=== PATIENT | male | born 1955 | race Caucasian/White ===

== ENCOUNTER 2016-08-04 05:41 | Day surgery (SDC) | payer OTHER ==
[~2016-08-04] VITALS: Ht 182.9 cm; Wt 97.5 kg
[~2016-08-04 05:41] MED LIST: ASPIRIN EC81 M1 PO; COREG6.25 MG PO; FUROSEMIDE40 MG PO; HYDROCODONE-APA1 TAB PO; LISINOPRIL2.5 MG PO; ULORIC40 MG PO
[2016-08-04 06:33] LABS: HEMATOCRIT 42.5 % (42.0-54.0); HEMOGLOBIN 14.3 g/dL (13.5-17.5); MCH 31.6 pg (26.0-34.0); MCHC 33.6 g/dL (31.0-37.0); MCV 93.8 fL (80.0-100.0); MEAN PLATELET VOLUME 10.2 fL (7.4-10.4); RBC 4.53 10x6/uL (4.20-6.10); RDW 13.6 % (11.5-14.5); WBC 6.4 10x3/uL (4.8-10.8)
[2016-08-04 06:47] LABS: ANION GAP 12.4 mmol/L (8-16); CALCIUM 8.8 mg/dL (8.5-10.1); CARBON DIOXIDE 28.6 mmol/L (21.0-32.0); CREATININE - SERUM 1.9 mg/dL (0.6-1.3)
[2016-08-04 06:55] LABS: APTT 27.6 SECONDS (22.8-39.4); PROTIME 13.1 SECONDS (11.6-15.0)
[2016-08-04] MEDS ORDERED: MULTIPLE VITAMI1 TA1 PO (09:02)
[2016-08-04] MEDS ORDERED: HYDROCODONE-APA1 TAB PO (09:02)
[2016-08-04 09:15] VITALS: BP 113/73; Ht 182.9 cm; Wt 97.5 kg
--- NOTE | 2016-08-04 14:32 | NUR ---
1345 IV DC WITH CATHER TIP INTACT
--- NOTE | 2016-08-05 11:32 | HP ---
PATIENT: JUDE HA MEDICAL RECORD: [id number] ACCOUNT: [id number] LOCATION:D.OPS : 56 ADMISSION DATE: 08/04/16 HISTORY AND PHYSICAL EXAMINATION NamePERSJUDE LAGUNA (60yo, M) ID# [id number]. Date/Time07/19/2016 11:11WWFIL12 [facility] Dept[facility] ClinicProviderEDSAMANTA DICKENS MDInsuranceMed Primary: AILYN BARRETO - [facility] - BALANCED CARE 7 (PPO) Insurance # : [id number] Policy/Group # : AMB [employer] 2 PP Referring Provider Name : VALERIA MCKEON Employer Name : UNKNOWN Prescription: [employer] - Member is eligible. 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 [facility] [address], , Vitals BP:122/80 sitting R arm 07/19/2016 10:52 amBP Cuff Size:adult 07/19/2016 10:52 amHR:68,irreg 07/19/2016 10:53 amHt:6 ft 07/19/2016 10:53 amWt:215 lbs 07/19/2016 10:53 amBMI:29.2 07/19/2016 10:53 amAllergies Reviewed Allergies NKDAMedications Reviewed Medications Aspir-81 hcaavvdc82/09/16 enteredCindy Browncarvedilol 6.25 mg /19/16 [facility] Administrationfurosemide 40 mg pblywm49/22/16 filled[place] Medicaid AdministrationHYDROcodone 10 mg-acetaminophen 325 mg jqlybi02/12/16 filledC[place]ell[place] Medicaid Administrationlisinopril 2.5 mg sokqfr30/02/16 filledMag[place] Medicaid AdministrationUloric 80 mg tablet Take 1 tablet(s) every day by oral route.07/07/16 Bam BrownXanax 0.25 mg tablet Take 1 tablet(s) as needed by oral route.07/07/16 Bam KennedyProblems Reviewed Problems Cardiomyopathy Family History Reviewed Family History Mother- Essential hypertensionSocial History Reviewed Social History Cardiology Family history of heart disease?: Y Smoking Status: Never smoker Non-smoker High Cholesterol: N High blood pressure: Y Overweight: Y Obese: N Diabetes: N HISTORY AND PHYSICAL [id number] JUDE HA General stress level: Low Alcohol intake: Occasional (Notes: 2-3 beers a week) 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 HPI Dysrhythmia Reported by patient. Frequency: none Limitations: none Alleviating Factors: controlled on current medication sudden syndrome ROS Patient reports muscle aches, arthralgias/joint pain, and swelling in the extremities but reports no muscle weakness and no back pain; gout. He reports no fever, no night sweats, no significant weight gain, no significant weight loss, and no exercise intolerance. He reports no dry eyes, no irritation, and no vision change. He reports no difficulty hearing and no ear pain. He reports no frequ e nt nosebleeds and no nose/sinus problems. He reports no sore throat, no bleeding gums, no snoring, no dry mouth, no mouth ulcers, no oral abnormalities, and no teeth problems. He reports no jugular vein distension and no swollen glands. He reports no ches t pain, no arm pain on exertion, no shortness of breath when walking, no shortness of breath when lying down, no palpitations, and no known heart murmur. He reports no chest pressure, no lightheadedness, no chest pain, no dyspnea on exertion, no leg edema, no syncope, no orthopnea, no palpitations, and no PND. He reports no cough, no wheezing, no shortness of breath, and no coughing up blood. He reports no abdominal pain, no vomiting, normal appetite, no diarrhea, not vomiting blood, no nausea, and no const i pation. He reports no incontinence, no difficulty urinating, no hematuria, and no increased frequency. He reports no abnormal mole, no jaundice, and no rashes. He reports no loss of consciousness, no weakness, no numbness, no seizures, no dizziness, and n o headaches. He reports no depression, no sleep disturbances, feeling safe in relationship, and no alcohol abuse. He reports no fatigue. He reports no swollen glands and no bruising. He reports no runny nose, no sinus pressure, no itching, no hives, and no frequent sneezing. ROS as noted in the HPI Physical Exam Patient is a 60-year-old male. Constitutional: General Appearance well nourished and developed and healthy-appearing. Level of Distress NAD. Ambulation ambulating normally. Cardiovascular: Apical Impulse not displaced or no thrill. Heart Auscultation normal s1 and s2; no murmurs, rubs, or gallops; and RRR. Arterial Pulses no abdominal aorta HISTORY AND PHYSICAL [id number] PERSER,JUDE R bruits, femoral bruits, or popliteal bruits and 2+ bilateral, carotid 2+ bilateral, femoral 2+ bilateral, po pliteal 2+ bilateral, and dorsalis pedis 2+ bilateral. Edema no edema or varicosities; AICD left subclavian area Normal. Lungs: Repiratory Effort no dyspnea. Percussion no hyperresonance or dullness or flatness. Auscultation no wheezing, rhonchi, or rales / crackles and breathing sounds normal, good air movement, and CTA except as noted. Abdomen: Bowl Sounds normal. Inspection and Palpation no tenderness, guarding, masses, or rebound tenderness and soft and non-distended. Liver non-tender and no hepatomegaly. Spleen non-tender and no splenomegaly. Hernia none palpable. Musculoskeletal System: Gait And Stance normal gait and stance. Digits and Nails normal nails and no cyanosis. Neurologic: Cranial Nerves grossly intact. Reflexes DTRs 2+ bilaterally throughout. Sensation grossly intact. Lymph Nodes: Lymph Nodes no cervical LAD, supraclavicular LAD, axillary LAD, or inguinal LAD. Eyes: Lids and Conjunctivae no discharge or pallor and non-injected. Pupils PERRLA. Cornea grossly intact. EOM EOMI. Lens clear. Sclerae non-icteric. Neck: Neck no masses, enlarged lymph nodes, or carotid bruits and supple and trachea midline. Thyroid no enlargement or nodules and non-tender. Skin: Inspection and Palpation no rash, lesions, ulcers, jaundice, or abnormal nevi. Assessment / Plan 1. Cardiomyopathy I42.9: Cardiomyopathy, unspecified 2. History of cardiac arrest - sudden syndrome Last shock 2014 Z86.74: Personal history of sudden cardiac arrest Discussion Notes patient needs AICD pulse generator exchange Battery end-of-life He is using the pacing system as well as last cardioversion in 2014 Scheduled for AICD generator exchange He will need someone to drive him home Return to Office None recorded. Encounter Sign-Off Encounter signed-off by Zev Dickens MD, 07/19/2016. 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
--- NOTE | 2016-08-05 11:32 | OP ---
PATIENT NAME: JUDE HA MEDICAL RECORD: [id number] :57 LOCATION:[facility] ADMISSION DATE: SURGEON: TONYA GUILLAUME MD DATE OF OPERATION: 08/04/2016 SURGEON: Tonya Guillaume MD ANESTHESIA: General, Dr. Bains. OPERATION PERFORMED: AICD pulse generator exchange and pulse generator pocket revision. PREOPERATIVE DIAGNOSIS: Cardiomyopathy. POSTOPERATIVE DIAGNOSIS: Cardiomyopathy. INDICATION FOR OPERATION: AICD, end of life. FINDINGS OF THE OPERATION: The newly implanted pulse generator is Medtronic ____, model number [id number], serial number [id number]. The leads were unchanged and were of good chronic lead thresholds. Please see the Medtronic worksheet for the specific numbers. ESTIMATED BLOOD LOSS: Less than 5 cc. DESCRIPTION OF PROCEDURE: After informed consent, adequate preoperative medication evaluation, the patient was brought to the operating room, placed on the operating table in the supine position. After induction of general anesthesia and application of appropriate monitoring devices, the left chest was prepped and draped in a sterile field, utilizing Betadine scrub, alcohol, and Betadine solution. A Betadine-impregnated drape was also used, 1% lidocaine was infiltrated in the left subclavicular space as well as in the pulse generator pocket. An incision was made, carried down to the pocket. The pocket was opened, the device was explanted and the leads were mobilized proximally. The device was removed and the patient paced through his RV lead mobilization of the leads was performed as well as modifying the pocket inferiorly and medially. Hemostasis was assured. The leads were then connected to the new pulse generator and the device was tested. The settings were normal as were the thresholds. The pocket was irrigated. Instrument count and sponge count were correct times 2. The pocket was closed in layers utilizing 3-0 Vicryl on deep subcutaneous tissue, 3-0 Vicryl on superficial subcutaneous tissue, and skin approximated with subcuticular Vicryl. Sterile dressings were applied. The patient tolerated the procedure well and was transferred to postanesthesia recovery in satisfactory condition. TRANSINT:[id number] Voice Confirmation ID: [id number] DOCUMENT ID: [id number] OPERATIVE REPORT [id number] JUDE HA TONYA GUILLAUME MD at 1138 CC: [id number] DICTATION DATE: 08/04/16 1204 POKER PROP PLAYER: 08/04/16 1406 [facility] 08/04/16 [place] [id number] [place] [id number]
== END 2016-08-04 14:00 | disposition home or self-care (01) ==
LOC: D.OPS 05:41
PROVIDERS: Internal Medicine Cardiovascular Disease
DX: Z45.02 Encounter for adjustment and management of automatic implantable cardiac defibrillator (principal); I10 Essential (primary) hypertension; I42.9 Cardiomyopathy, unspecified; E66.3 Overweight; Z68.29 Body mass index [BMI] 29.0-29.9, adult

== ENCOUNTER 2018-02-28 10:54 | Outpatient (CLI) | payer SELFPAY ==
[~2018-02-28] VITALS: Ht 182.9 cm; Wt 91.8 kg
--- NOTE | ~2018-02-28 | OP ---
PATIENT NAME: JUDE HA MEDICAL RECORD: [id number] :57 LOCATION:D.CAT ADMISSION DATE: SURGEON: CASSIUS MEDINA MD DATE OF OPERATION: 02/28/2018 PROCEDURE: Left and right heart catheterization, right femoral vein and artery approach respectively. CATHETERS: A 5-Tunisian sheath, 5/4 left and right Manjinder, 6-Tunisian sheath on the venous side, [place]-Mansi catheter. The procedure was well tolerated. The patient was returned to padilla. Sheath removed. ExoSeal device placed on the arterial side and manual pressure on the venous side. Right heart had [place]-Mansi placement under fluoroscopic guidance. PRESSURES: As follow; 1. Pulmonary capillary wedge pressure is 22 mmHg. 2. PA pressure is 44/19. 3. RV pressure 39/6. 4. RA pressure 6. CORONARY ANATOMY: LEFT MAIN: Left main is free of disease. LAD: Free of disease in the diagonal system. CIRCUMFLEX: Free of disease in the marginal system. RIGHT CORONARY ARTERY: Dominant artery, gives rise to PDA, free of disease. LV function shows severe global hypokinesis with EF estimated at 15%. IMPRESSION: Severe nonischemic cardiomyopathy. Consider status post 3-lead ICD. TRANSINT:[id number] Voice Confirmation ID: [id number] DOCUMENT ID: [id number] CASSIUS MEDINA MD at 1116 CC: [id number] DICTATION DATE: 02/28/18 1443 BALLASTER: 02/28/18 1515 DEP CLI 02/28/[address] [id number]
--- NOTE | ~2018-02-28 | HEMODYNAMI ---
PATIENT:JUDE HA MEDICAL RECORD: [id number] : 57 LOCATION:[facility] ADMISSION DATE: 02/28/18 Generatedon:02/28/201814:33 Patient name: JUDE HA Patient #: [id number] SSN: [id number] 2 : 1955 Date of study: 02/28/2018 Page: Of Hemodynamic Procedure Report Patient Data Patient Demographics Procedure consent was obtained First Name: JUDE Gender: Male Last Name: LELAND : 1955 Middle Initial: R Age: 62 year(s) Patient #: [id number] Race: Unknown SSN: [id number] Additional ID: [id number] Contact details Address: [address] State: [place] City: [place] Zip code: [address] Past Medical History Allergies: No known allergies Admission Admission Data Admission Date: 02/28/2018 Admission Time: 10:54 Height (in.): 72 BSA: 2.13 (m2) Height (cm.): 182.88 BMI: 27.12 (kg/m2) Weight (lbs.): 200 Weight (kg.): 90.72 Lab Results Lab Result Date: 02/28/2018 Lab Result Time: 0:00 Biochemistry Name Units Result Min Max BUN mg/dl 34 --(----)-* 7 18 Creatinine mg/dl 2 --(----)-* 0.6 1.3 CBC Name Units Result Min Max Hemoglobin g/dl 15.3 --(-*--)-- 13.5 17.5 Procedure Procedure Types Cath Procedure Diagnostic Procedure Right Heart RHC and LHC w/o Cors Sedation Charges Moderate Sedation up to 30 minutes Procedure Description Procedure Date Procedure Date: 02/28/2018 Procedure Start Time: 14:07 Procedure End Time: 14:31 Procedure Staff Name Function Nida Rosario RN Nurse Evaristo Shaw MD Performing Physician Stormy Allen RT Monitor Christy Salmeron RT Scrub Araceli Counts RT Monitor Procedure Data Cath Procedure Fluoroscopy Diagnostic fluoroscopy Total fluoroscopy Time: 7.7 time: 7.7 min min Diagnostic fluoroscopy Total fluoroscopy dose: 735 dose: 735 mGy mGy Contrast Material Contrast Material Type Amount (ml) Isovue 300 53 Entry Location Entry Primary Successful Side Size Upsize Upsize Entry Closure [place] ccessful Closure Location (Fr) 1 (Fr) 2 (Fr) Remarks Device Remarks Femoral Right 5 Fr Exoseal artery Femoral Right 7 Fr Manual vein Short Compression Estimated blood loss: 5 ml Diagnostic catheters Device Type Used For End Catheter Placement SWAN 7Fr Thermodilution Right heart cath cather (131F7P) MULTIPACK JL 4.0 5Fr Left Coronary catheter Angiography MULTIPACK 3DRC 5Fr Right Coronary catheter Angiography MULTIPACK Pigtail 5 Fr LV Angiography catheter Procedure Complications No complications Procedure Medications Medication Administration Route Dosage Oxygen etCO2 Nasal cannula 2 l/min Heparin Flush Bag added to field 2 bags (1000units/500ml NS) 0.9% NaCl I.V. 100 ml/hr Fentanyl I.V. 50 mcg Versed I.V. 1 mg Fentanyl I.V. 50 mcg Versed I.V. 1 mg Hemodynamics Rest BSA: 2.13 (m2) HGB: 15.3 (g/dl) O2 Consumption: Estimated: 243.36 (ml/min) O2 Co nsumption indexed: Estimated:114.25 (ml/min/m) Heart Rate: 62 (bpm) Pressure Samples Time Site Value (mmHg) Purpose Heart Use Rate(bpm) 14:19 PCW 23/26(22) Snapshot 60 14:19 PA 44/19(28) Snapshot 60 14:20 RV 39/1,6 Snapshot 60 14:20 RA 8/7(6) Snapshot 60 14:25 LV 85/11,15 EDP 60 14:26 LV 84/13,15 Pullback 60 14:26 AO 88/58(69) Pullback 60 Gradients Valve Time Site 1 Site 2 Mean SEP/DFP Peak To Heart Use (mmHg) (sec/min) Peak Rate (mmHg) (bpm) Aortic 14:26 LV AO 0 9 0 60 84/13,15 88/58(69) Calculations Valve P-P Mean Valve Index Valve Source Name Gradient Area Flow (cm2) Aortic 0 0 0 0 Snapshots Pre Cath Intra NCS Post Cath Vital Signs Time Heart Resp SPO2 etCO2 NIBP Rhythm Pain Sedation Rate (ipm) (%) (mmHg) (mmHg) Status Level (bpm) 13:47:45 71 16 96 0 110/71(83) NSR 0 (11) 10(A) , No pain 13:50:00 72 17 96 0 112/71(88) NSR 0 (11) 10(A) , No pain 13:54:02 59 16 97 0 107/77(87) NSR 0 (11) 10(A) , No pain 13:58:06 59 16 94 23.2 104/67(80) NSR 0 (11) 10(A) , No pain 14:02:09 59 16 94 14.9 100/64(77) NSR 0 (11) 10(A) , No pain 14:06:13 60 16 97 32.9 97/59(84) NSR 0 (11) 10(A) , No pain 14:10:16 59 17 97 35.2 91/58(81) NSR 0 (11) 9(A) , No pain 14:14:18 60 16 95 33.7 89/58(69) NSR 0 (11) 9(A) , No pain 14:18:20 60 16 94 14.9 92/53(70) NSR 0 (11) 9(A) , No pain 14:22:22 59 16 96 35.2 95/56(64) NSR 0 (11) 9(A) , No pain 14:26:23 60 16 97 33.7 95/61(69) NSR 0 (11) 9(A) , No pain 14:29:11 63 17 98 29.9 100/64(72) NSR 0 (11) 9(A) , No pain Medications Time Medication Route Dose Verified Delivered Reason Notes Effe ctiveness by by 13:49:34 Oxygen etCO2 2 Evaristo Hagen Per Nasal l/min [facility] Den Major RN physician cannula 13:49:41 Heparin Flush added 2 Evaristo Hagen used for Bag to bags [facility] Den Major RN procedure (1000units/500ml field NS) 13:49:49 0.9% NaCl I.V. 100 Evaristo Hagen Per ml/hr [facility] Den Major RN physician 13:56:09 Fentanyl I.V. 50 Evaristo [place] [facility] [place] [facility] [place] sedation 13:56:15 Versed I.V. 1 mg Evaristo Hagen for [facility] RN sedation 14:07:19 Fentanyl I.V. 50 Evaristo Hagen [place] [facility] [place] [facility] RN sedation 14:07:22 Versed I.V. 1 mg Evaristo Hagen for [facility] RN sedation Procedure Log Time Note 13:28:52 Patient Height : 72 inches 13:29:20 Patient Weight : 200 lbs 13:30:27 Diagnostic Cath status Elective 13:30:29 Nida Rosario RN sent for patient. Start room use. 13:30:30 Time tracking: Regular hours (M-F 7:00 - 5:00) 13:30:35 Plan of Care:Hemodynamics will remain stable., Cardiac rhythm will remain stable., Comfort level will be maintained., Respiratory function will remain adequate., Patient/ family verbilizes understanding of procedure., Procedure tolerated without complication., Recovers from procedure without complications.. 13:31:12 H&P Date Dictated: 02/25/2018 Within 30 days and on chart., H&P Addendum completed by physician on day of procedure. (MUST COMPLETE FOR ALL OUTPATIENTS). 13:42:52 Patient allergic to No known allergies 13:43:22 Lab Result : Hemoglobin 15.3 g/dl 13:43:22 Lab Result : Creatinine 2 mg/dl 13:43:22 Lab Result : BUN 34 mg/dl 13:43:44 Patient received from Pre/Post Procedure Room to CCL 2 Alert and oriented. Tansferred to table in Supine position. 13:43:48 Warm blankets applied, and nolberto hugger turned on for patient comfort. 13:43:53 Correct patient and procedure confirmed by team. 13:43:59 Signed procedure consent form obtained from patient. 13:44:00 ECG and BP/O2 sat monitors applied to patient. 13:44:04 Pre-procedure instructions explained to patient. 13:44:08 Pre-op teaching completed and patient verbalized understanding. 13:44:09 Family in patients room. 13:44:11 Patient NPO since Midnight. 13:44:13 Is the patient allergic to Iodine/contrast media? No. 13:44:15 Is patient on blood thinner?No 13:44:20 Patient diabetic? No. 13:44:24 Previous problem with sedation/anesthesia? No \\ 13:44:26 Snore? Yes 13:44:27 Sleep apnea? No 13:44:28 Opens mouth fully? Yes 13:44:28 Deviated septum? No 13:44:29 Sticks out tongue? Yes 13:44:31 Airway obstruction? No ? 13:44:36 Dentures? Yes IN 13:49:08 Vital chart was started 13:49:22 Baseline sample Acquired. 13:49:28 Rhythm: paced 13:49:30 Full Disclosure recording started 13:49:34 Oxygen 2 l/min etCO2 Nasal cannula was administered by Hieu Major RN; Per physician; 13:49:36 Pre procedure: right dorsailis pedis pulse 2+ Normal; easily identifiable; not easily obliterated 13:49:41 Heparin Flush Bag (1000units/500ml NS) 2 bags added to field was administered by Hieu Major RN; used for procedure; 13:49:43 Patient pain scale 0/10 ?. 13:49:49 0.9% NaCl 100 ml/hr I.V. was administered by Hieu Major RN; Per physician; 13:49:51 IV patent on arrival in left forearm with 0.9% NaCl at O. 13:49:53 Lab results completed and on chart. 13:49:58 Right groin area was prepped with chlora-prep and draped in sterile fashion 13:49:59 Sharps counted by scrub and verified by R.N. 13:49:59 Alarms reviewed by R. N. 13:50:03 Use device set Femoral Dx 13:50:04 ACIST Syringe (70370) opened to sterile field. 13:50:05 Medline Cath Pack ([id number]) opened to sterile field. 13:50:05 Bag Decanter (2002) opened to sterile field. 13:50:06 DIAGNOSTIC WIRE .035 260cm J wire (247479) opened to sterile field. 13:50:07 ACIST Manifold (43656) opened to sterile field. 13:50:07 ACIST Hand Control (71564) opened to sterile field. 13:50:08 DIAGNOSTIC Multipack 5Fr catheter set ([id number]) opened to sterile field. 13:50:09 Tegaderm 4 x 4 (1626W) opened to sterile field. 13:50:12 SHEATH Prelude 5Fr 0.035 (BQQ-4O-64-035) opened to sterile field. 13:50:15 Use device set Right Heart Kit 13:50:20 SHEATH 7FR Scotts (YSW907) opened to sterile field. 13:52:36 Final Timeout: patient, procedure, and site verified with staff and physician. All members of the team are in agreement. 13:52:38 Right groin site verified by team. 13:52:41 Physical assessment completed. ASA score P 2 - A patient with mild systemic disease as per Evaristo Shaw MD. 13:52:44 Sedation plan: IV Moderate Sedation Medication:Versed, Fentanyl 13:56:09 Fentanyl 50 mcg I.V. was administered by Hieu Major RN; for sedation; 13:56:15 Versed 1 mg I.V. was administered by Hieu Major RN; for sedation; 13:57:40 Zero performed for pressure channel P1 14:07:05 Procedure started. 14:07:08 Local anesthetic to right femoral artery with Lidocaine 2% by Evaristo Shaw MD.INITIAL ACCESS ONLY 14:07:19 Fentanyl 50 mcg I.V. was administered by Hieu Major RN; for sedation; 14:07:22 Versed 1 mg I.V. was administered by Hieu Major RN; for sedation; 14:07:56 A 5 Fr sheath was inserted into the Right Femoral artery 14:13:54 A 7 Fr Short sheath was inserted into the Right Femoral vein 14:14:13 A SWAN 7Fr Thermodilution cather (131F7P) was advanced over the wire and used for Right heart cath. 14:14:20 [place] "C" tip catheter inserted 14:18:44 DIAGNOSTIC WIRE .025 150cm J (042339) opened to sterile field. 14:18:55 0.025 J wire advanced. 14:19:25 Right heart pressures obtained. 14:20:35 [place] removed. 14:21:17 A MULTIPACK JL 4.0 5Fr catheter was advanced over the wire and used for Left Coronary Angiography. 14:24:01 Catheter removed. 14:24:08 A MULTIPACK 3DRC 5Fr catheter was advanced over the wire and used for Right Coronary Angiography. 14:24:11 Catheter removed. 14:24:18 A MULTIPACK Pigtail 5 Fr catheter was advanced over the wire and used for LV Angiography. 14:25:51 LV gram done using MAYBERRY 14::59 EF : 15 % 14::03 Injector settings: Ml/sec: 10, Volume: 20, 14:27:41 Catheter removed. 14:27:53 Sheath removed intact; hemostasis achieved with Exoseal to the Right Femoral artery. 14:28:02 Sheath removed intact; hemostasis achieved with Manual Compression to the Right Femoral vein. 14:28:04 Procedure ended.(Physican Out) 14:28:32 Fluoroscopy time 07.70 minutes. 14::36 Fluoroscopy dose: 735 mGy 14::36 Flurop Dose total: 735 14::41 Contrast amount:Isovue 300 53ml. 14:28:42 Sharps counted by scrub and verified by R.N. 14:28:44 Insertion/operative site no bleeding no hematoma. 14:28:47 Post-op/insertion site Right Femoral artery dressed using a 4 x 4 and Tegaderm. 14:28:52 Post right femoral artery:stable, clean and dry 14:28:56 Post right femoral vein:stable, clean and dry 14:28:57 Post Procedure Pulses reassessed and unchanged 14:28:59 Post-procedure physical assessment completed. ASA score P 2 - A patient with mild systemic disease as per Evaristo Shaw MD. 14:29:01 Post procedure rhythm: unchanged. 14:29:05 Estimated blood loss: 5 ml 14:29:06 Patient needs reinforcement of post procedure teaching. 14:29:06 Post procedure instruction explained to patient.Patient verbalizes understanding. 14:29:40 Procedure type changed to Cath procedure, Diagnostic procedure, Right Heart, RHC and LHC w/o Cors, Sedation Charges, Moderate Sedation up to 30 minutes 14:29:46 Procedure Complication : No complications 14:29:49 See physician's report for complete and final results. 14:30:03 EXOSEAL 5Fr (EX500) opened to sterile field. 14:30:31 Procedure and supply charges have been captured, reviewed, submitted and are correct. 14:30:34 Vital chart was stopped 14:30:36 Report given to Pre/Post Procedure Room. 14:31:20 Full Disclosure recording stopped 14:31:20 Procedure ended. 14:31:37 End room use (Document Last) 14:33:30 Patient transfered to Pre/Post Procedure Room with Stretcher. Device Usage Item Name Manufacture Quantity Catalog Number Hospital Part Current M inimal Lot# / Charge Number Stock Stock Serial# Code ACIST Syringe Acist 1 27357 484803 669524 601504 2 0 (68934) [employer] Bag Decanter Microtek 1 2001S 628798 56323 668675 5 () Medical Inc. Medline Cath Cardinal 1 [id number] 535944 87354 388184 5 Pack Health ([id number]) DIAGNOSTIC WIRE St Cisco 1 563590 817943 363357 939132 3 0 .035 260cm J wire (382295) ACIST Hand Acist 1 57226 476542 507661 632657 5 Control (89123) [employer] ACIST Manifold Acist 1 17630 133753 483701 928016 5 (30000) [employer] DIAGNOSTIC Cardinal 1 HU2748 797231 72234 767372 3 0 Multipack 5Fr Health catheter set (PE0428) Tegaderm 4 x 4 3M 1 1626W 679872 278927 315427 5 (1626W) SHEATH Prelude Merit 1 THS-3P-91-035 130729 493886 961935 5 5Fr 0.035 Medical (TYS-4Q-27-035) SHEATH 7FR Terumo 1 YIE794 632008 725691 271427 5 Scotts (TZY359) SWAN 7Fr Helm 1 131F7P 616143 25571 279302 3 Thermodilution Lifesciences cather (131F7P) DIAGNOSTIC WIRE St Cisco 1 619307 060088 607249 977882 2 .025 150cm J (520355) MULTIPACK JL Cardinal 1 287579 5 4.0 5Fr Health catheter MULTIPACK 3DRC Cardinal 1 068463 5 5Fr catheter Health MULTIPACK Cardinal 1 [id number] 5 Pigtail 5 Fr Health catheter EXOSEAL 5Fr Cardinal 1 EX500 873781 059779 298129 1 0 (EX500) Health Signature Audit [place] Stage Time Signature Unsigned Intra-Procedure 02/28/2018 Araceli 2:32:58 PM Counts RT(R) Signatures Monitor : Stormy Allen Signature : RT Date : Time : Monitor : Araceli Signature : Counts RT Date : Time : [address] [place] [address]
[~2018-02-28 10:54] MED LIST changes: +MULTIPLE VITAMI1 TA1 PO
[2018-02-28] MEDS ORDERED: PACERONE200 MG PO (11:16)
[2018-02-28] MEDS ORDERED: LANOXIN125 MCG PO (11:16)
[2018-02-28 11:17] VITALS: BP 110/81; Ht 182.9 cm; Wt 91.8 kg
[2018-02-28 12:00] LABS: BASOPHILS 0.8 % (0-2); EOSINOPHILS 4.6 % (0-7); HEMATOCRIT 44.4 % (42.0-54.0); HEMOGLOBIN 15.3 g/dL (13.5-17.5); IMMATURE GRANULOCYTES 0.3 % (0-5); MCH 32.7 pg (26.0-34.0); MCHC 34.5 g/dL (31.0-37.0); MCV 94.9 fL (80.0-100.0); MEAN PLATELET VOLUME 9.8 fL (7.4-10.4); MONOCYTES 10.3 % (2-11); PLATELET COUNT 183 10x3/uL (130-400); RBC 4.68 10x6/uL (4.20-6.10); RDW 12.8 % (11.5-14.5); WBC 7.7 10x3/uL (4.8-10.8)
[2018-02-28 12:11] LABS: ANION GAP 10.8 mmol/L (8-16); CALCIUM 8.9 mg/dL (8.5-10.1); CARBON DIOXIDE 30.4 mmol/L (21.0-32.0)
[2018-02-28 12:12] LABS: POTASSIUM - SERUM 4.2 mmol/L (3.5-5.1)
== END 2018-02-28 16:50 | disposition home or self-care (01) ==
LOC: D.CATH 10:54
PROVIDERS: Internal Medicine Interventional Cardiology
DX: R55 Syncope and collapse (principal); I10 Essential (primary) hypertension; I20.9 Angina pectoris, unspecified; Z95.810 Presence of automatic (implantable) cardiac defibrillator